=== PATIENT | female | born 1955 | race African-American/Black ===

== ENCOUNTER 2017-09-05 06:28 | Day surgery (SDC) | payer OTHER ==
[~2017-09-05] VITALS: Ht 162.6 cm; Wt 96.6 kg
[2017-09-05] MEDS: LACTATED RINGERS 1,000 ML IV SCH ×2 (07:00→10:13)
[2017-09-05] MEDS ORDERED: IOPAMIDOL 61% 300/15 ML VIAL IT ONE (07:06)
[2017-09-05] MEDS ORDERED: ROCURONIUM BROMIDE 10MG/ML VIAL 5ML IV ONE (07:20)
[2017-09-05] MEDS ORDERED: CEFAZOLIN SODIUM 1000MG/VIAL ONE ×2 (07:20→07:57)
[2017-09-05] MEDS ORDERED: FENTANYL CITRATE/PF 50MCG/ML 2ML VIAL ONE (07:20)
[2017-09-05] MEDS ORDERED: MIDAZOLAM HCL 2 MG/2 ML VIAL ONE (07:20)
[2017-09-05] MEDS ORDERED: PROPOFOL 200MG/20ML VIAL IV ONE (07:20)
[2017-09-05 07:45] LABS: CLARITY URINE CLEAR (CLEAR); COLOR URINE YELLOW (YELLOW); KETONES URINE NEGATIVE (NEGATIVE); LEUKOCYTE ESTERASE URINE TRACE (NEGATIVE); NITRITE URINE NEGATIVE (NEGATIVE); OCCULT BLOOD URINE TRACE (NEGATIVE); PH URINE 5.5 (4.5-8.0); PROTEIN URINE NEGATIVE (NEGATIVE); SPECIFIC GRAVITY URINE 1.017 (1.005-1.030); UROBILINOGEN URINE 0.2 E.U./dL (0.2-1.0)
[2017-09-05 07:52] LABS: BASOPHILS % 0.7 % (0.0-2.0); EOSINOPHILS % 1.9 % (0.0-5.0); HEMATOCRIT. 39.9 % (36.0-48.0); HEMOGLOBIN. 13.2 g/dL (12.0-16.0); LYMPHOCYTES % 24.7 % (20.0-50.0); MEAN CORPUSCULAR HEMOGLOBIN 30.6 pg (28.0-32.0); MEAN CORPUSCULAR VOLUME 92.4 fL (81.0-99.0); MEAN PLATELET VOLUME 7.5 fl (7.4-10.4); NEUTROPHILS % 66.7 % (40.0-76.0); PLATELET 402 x1000/uL (130-400); RED BLOOD CELL COUNT 4.32 mill/uL (4.2-5.4); RED CELL DISTRIBUTION WIDTH 13.5 % (11.6-14.6)
[2017-09-05 07:54] LABS: PARTIAL THROMBOPLASTIN TIME 29.2 sec (23.4-31.0); PROTHROMBIN TIME 10.7 sec (9.4-11.6)
[2017-09-05] MEDS ORDERED: ESMOLOL HCL 10MG/ML 10ML VIAL IV ONE (07:58)
[2017-09-05] MEDS ORDERED: ONDANSETRON HCL 4MG/2ML VIAL ONE ×2 (08:03→09:45)
[2017-09-05] MEDS ORDERED: MORPHINE SULFATE 2 MG/ML CPJ (NOT FOR IM USE) IV PRN (08:30)
[2017-09-05] MEDS ORDERED: FENTANYL CITRATE/PF 50MCG/ML 2ML VIAL IV PRN (08:30)
[2017-09-05] MEDS ORDERED: MEPERIDINE HCL/PF 25MG/ML CPJ IV PRN (08:30)
[2017-09-05 08:40] LABS: CHLORIDE 107 mEq/L (98-107)
[2017-09-05] MEDS ORDERED: KETOROLAC 30MG/ML VIAL ONE (09:44)
[2017-09-05] MEDS ORDERED: ASCO-316 PO (10:11)
[2017-09-05] MEDS ORDERED: LOSA1TAB40 PO (10:11)
[2017-09-05] MEDS ORDERED: MULT-1116 PO (10:11)
== END 2017-09-05 11:45 | disposition home or self-care (01) ==
LOC: OR 06:28
PROVIDERS: ATTEND Obstetrics & Gynecology Obstetrics
DX: D25.0 Submucous leiomyoma of uterus (principal); N84.0 Polyp of corpus uteri; I10 Essential (primary) hypertension; E66.01 Morbid (severe) obesity due to excess calories; Z79.899 Other long term (current) drug therapy
CPT/HCPCS: 36415; 58561; 80048; 81003; 85025; 85610; 85730; 88305; 93005; J0690; J2250; J2405; J3010; J3490; J7120; J1885; J2704; Q9967